=== PATIENT | male | born 1980 | race Caucasian/White ===

== ENCOUNTER 2021-06-29 14:58 | Emergency (ER) | payer OTHER ==
[2021-06-29 15:38] VITALS: BP 130/88; PULSE 74; TEMP 98.6; BMI 26.6
== END 2021-06-29 17:48 | disposition home or self-care (01) ==
LOC: JERFT 14:58
DX: R73.9 Hyperglycemia, unspecified (principal); K64.9 Unspecified hemorrhoids
CPT/HCPCS: 82962; 99283-25